=== PATIENT | male | born 2000 | race Caucasian/White ===

== ENCOUNTER 2021-04-20 11:26 | Emergency (ER) | payer OTHER ==
[2021-04-20 12:54] LABS: HEMOGLOBIN 14.7 gm/dl (14.0-17.5); RED BLOOD COUNT 4.91 M/UL (4.20-5.50); WHITE BLOOD COUNT 12.5 K/UL (4.5-11.0)
[2021-04-20 13:13] LABS: BUN/CREATININE RATIO 16 (0-10)
== END 2021-04-20 22:00 | disposition short-term general hospital (02) ==
LOC: ER1 11:26
PROVIDERS: Emergency Medicine
DX: R56.9 Unspecified convulsions (principal); S06.5X0A Traumatic subdural hemorrhage without loss of consciousness, initial encounter; J45.909 Unspecified asthma, uncomplicated; Z20.822 Contact with and (suspected) exposure to COVID-19; W22.8XXA Striking against or struck by other objects, initial encounter
CPT/HCPCS: 0240U; 70450; 71045; 80053; 81001; 83605; 83690; 85025; 93005; 94664; 94760; 99285